=== PATIENT | female | born 1980 | race Two or more races ===

== ENCOUNTER 2016-11-18 00:39 | Emergency (ER) | payer SELFPAY ==
[~2016-11-18] VITALS: Ht 162.6 cm; Wt 71.0 kg
[2016-11-18] MEDS ORDERED: SODIUM CHLORIDE 0.9% 1,000 ML IV ONE (02:07)
[2016-11-18] MEDS ORDERED: LORAZEPAM 2MG/ML CPJ IV ONE (02:15)
[2016-11-18 02:38] LABS: BASOPHILS % 0.8 % (0.0-2.0); EOSINOPHILS % 1.3 % (0.0-5.0); HEMATOCRIT. 33.5 % (36.0-48.0); HEMOGLOBIN. 10.8 g/dL (12.0-16.0); MEAN CORPUSCULAR HEMOGLOBIN 25.4 pg (28.0-32.0); MEAN CORPUSCULAR VOLUME 78.7 fL (81.0-99.0); MEAN PLATELET VOLUME 8.3 fl (7.4-10.4); MONOCYTES % 4.3 % (2.0-8.0); NEUTROPHILS % 72.6 % (40.0-76.0); PLATELET 383 x1000/uL (130-400); RED BLOOD CELL COUNT 4.25 mill/uL (4.2-5.4); RED CELL DISTRIBUTION WIDTH 16.1 % (11.6-14.6)
[2016-11-18 02:53] LABS: CARBON DIOXIDE 23 mEq/L (21-32); CHLORIDE 109 mEq/L (98-107); ETHANOL BLOOD 122 mg/dL
[2016-11-18 03:20] LABS: CLARITY URINE CLEAR (CLEAR); COLOR URINE YELLOW (YELLOW); GLUCOSE URINE NEGATIVE (NEGATIVE); KETONES URINE NEGATIVE (NEGATIVE); LEUKOCYTE ESTERASE URINE NEGATIVE (NEGATIVE); NITRITE URINE NEGATIVE (NEGATIVE); OCCULT BLOOD URINE TRACE (NEGATIVE); PH URINE 5.5 (4.5-8.0); PROTEIN URINE 2+ (NEGATIVE); SPECIFIC GRAVITY URINE 1.024 (1.005-1.030); UROBILINOGEN URINE 0.2 E.U./dL (0.2-1.0)
[2016-11-18 04:22] LABS: *BARBITURATES SCREEN URINE NEGATIVE (NEGATIVE); *BENZODIAZEPINES SCREEN URINE NEGATIVE (NEGATIVE); *COCAINE SCREEN URINE NEGATIVE (NEGATIVE); CANNABINOID URINE SCREEN NEGATIVE (NEGATIVE); METHADONE URINE SCREEN NEGATIVE (NEGATIVE); OPIATES URINE SCREEN NEGATIVE (NEGATIVE); PHENCYCLIDINE URINE SCREEN NEGATIVE (NEGATIVE)
[2016-11-18 04:27] LABS: *AMPHETAMINES SCREEN URINE PRESUMTIVE POSITIVE (NEGATIVE)
[2016-11-18 06:25] VITALS: BP 139/93
== END 2016-11-18 07:19 | disposition home or self-care (01) ==
LOC: ER 00:39
DX: R45.851 Suicidal ideations (principal); F31.9 Bipolar disorder, unspecified; F10.20 Alcohol dependence, uncomplicated; F19.10 Other psychoactive substance abuse, uncomplicated; F20.9 Schizophrenia, unspecified; Y90.6 Blood alcohol level of 120-199 mg/100 ml
CPT/HCPCS: 36415; 80053; 80305; 80307; 80329; 81001; 81025; 85025; 93005; 96361; 96374; 99285; G0482; J2060; J7030; Z7610; A4315

== ENCOUNTER 2024-05-03 09:17 | Emergency (ER) | payer SELFPAY ==
[~2024-05-03] VITALS: Ht 162.6 cm; Wt 85.0 kg
[2024-05-03 09:23] VITALS: TEMP 36.9; O2SAT 99
[2024-05-03] MEDS: TETANUS, DIPHTHERIA, PERTUSSIS VAC/PF 0.5ML (>10YR OLD) IM ONE (09:45)
[2024-05-03] MEDS: LIDOCAINE HCL/PF 1% 10 MG/ML 5ML VIAL INFIL ONE (10:30)
[2024-05-03] MEDS: BACITRACIN ZINC OINT UDPKT TOP ONE (10:30)
[2024-05-03 11:48] VITALS: BP 155/79; PULSE 86; RESP 17; O2SAT 100
== END 2024-05-03 11:49 | disposition home or self-care (01) ==
LOC: ER 09:17
DX: S61.412A Laceration without foreign body of left hand, initial encounter (principal); F20.9 Schizophrenia, unspecified; F31.9 Bipolar disorder, unspecified; Z23 Encounter for immunization; W25.XXXA Contact with sharp glass, initial encounter; Y93.89 Activity, other specified; Y92.89 Other specified places as the place of occurrence of the external cause; Y99.8 Other external cause status
CPT/HCPCS: 73130; 90715; 12002; 90471; 99283; J2003; Z7610

== ENCOUNTER 2025-02-11 13:30 | Emergency (ER) | payer SELFPAY ==
[~2025-02-11] VITALS: Ht 170.2 cm; Wt 91.0 kg
[2025-02-11 13:33] VITALS: O2SAT 96
[2025-02-11 14:12] LABS: BASOPHILS % 0.8 % (0.0-2.0); EOSINOPHILS % 3.2 % (0.0-5.0); HEMATOCRIT. 26.3 % (36.0-48.0); HEMOGLOBIN. 7.7 g/dL (12.0-16.0); LYMPHOCYTES % 22.2 % (20.0-50.0); MEAN PLATELET VOLUME 7.6 fl (7.4-10.4); MONOCYTES % 4.9 % (2.0-8.0); NEUTROPHILS % 68.9 % (40.0-76.0); PLATELET 541 x1000/uL (130-400); RED BLOOD CELL COUNT 4.50 mill/uL (4.2-5.4); RED CELL DISTRIBUTION WIDTH 20.6 % (11.6-14.6)
[2025-02-11 14:24] LABS: CREATININE 0.7 mg/dL (0.6-1.0)
[2025-02-11 14:25] LABS: UREA NITROGEN BLOOD 14 mg/dL (9-23)
[2025-02-11 14:29] LABS: ADD RBC MORPHOLOGY YES; HCG SCREEN NEGATIVE
[2025-02-11 14:38] LABS: TROPONIN I HIGH SENSITIVITY 11 ng/L (3.0-34)
[2025-02-11 16:33] LABS: TROPONIN I HIGH SENSITIVITY 8 ng/L (3.0-34)
[2025-02-11 17:47] LABS: PLATELET ESTIMATE MARKEDLY INCREASED
[2025-02-11] MEDS ORDERED: AMOX1TAB16 MT (17:54)
[2025-02-11 18:00] VITALS: BP 161/84; PULSE 79; RESP 18; TEMP 36.9; O2SAT 98
[2025-02-11] MEDS: BACITRACIN ZINC OINT UDPKT TOP NR (18:23)
== END 2025-02-11 18:00 | disposition home or self-care (01) ==
LOC: ER 13:30
DX: R06.02 Shortness of breath (principal); F20.9 Schizophrenia, unspecified; F31.9 Bipolar disorder, unspecified
CPT/HCPCS: 36415; 71045; 80048; 83880; 84484; 84703; 85025; 85379; 93005; 99285